=== PATIENT | female | born 1995 | race Asian ===

== ENCOUNTER 2020-09-26 09:53 | Emergency (ER) | payer OTHER, SELFPAY ==
[~2020-09-26] VITALS: Ht 165.1 cm; Wt 52.2 kg
[2020-09-26] MEDS ORDERED: TETRACAINE 0.5% OPHTH SOLN 4ML OD ONE (11:55)
[2020-09-26] MEDS ORDERED: FLUORESCEIN OPHTH 1 MG STRIP OD ONE (11:55)
[2020-09-26] MEDS ORDERED: GATI1SOL2 OD (12:20)
[2020-09-26] MEDS ORDERED: PRED1SUS30 OD (12:22)
[2020-09-26 13:00] VITALS: BP 101/73
== END 2020-09-26 13:20 | disposition home or self-care (01) ==
LOC: M ED 09:53
DX: H20.9 Unspecified iridocyclitis (principal)